=== PATIENT | male | born 1995 | race Caucasian/White ===

== ENCOUNTER 2020-02-12 10:44 | Emergency (ER) | payer OTHER ==
[~2020-02-12] VITALS: Ht 175.3 cm; Wt 115.0 kg
[2020-02-12 10:58] VITALS: BP 133/77
--- NOTE | 2020-02-12 11:30 | PHYS DOC ---
Past History Past Medical History: No Pertinent History Past Surgical History: No Surgical History Alcohol Use: Occasionally Adult General Chief Complaint Chief Complaint: PSYCH EVALUATION HPI HPI 24-year-old male presents with depression. Patient has been feeling like his life is out of control and not making sense for several months. He is struggled with this on and off since his teen years. He presents today because he drank much alcohol when out did some "dumb things". He is feeling remorseful. He denies any suicidal ideation or suicide attempts. No history of attempts. He has no homicidal ideation. He is just concerned that does not understand himself and does not know why he feels this way. He did not know what else to go to try to get some help. The patient is a dependent of the member. He is not himself in the . He denies fever chills. He has no other complaints at this time. Review of Systems Review of Systems Constitutional: Depression. Denies fever or chills [] Eyes: Denies change in visual acuity, redness, or eye pain [] HENT: Denies nasal congestion or sore throat [] Respiratory: Denies cough or shortness of breath [] Cardiovascular: No additional information not addressed in HPI [] GI: Denies abdominal pain, nausea, vomiting, bloody stools or diarrhea [] : Denies dysuria or hematuria [] Musculoskeletal: Denies back pain or joint pain [] Integument: Denies rash or skin lesions [] Neurologic: Denies headache, focal weakness or sensory changes [] Endocrine: Denies polyuria or polydipsia [] All other systems were reviewed and found to be within normal limits, except as documented in this note. Allergies Allergies Allergies Coded Allergies Type Severity Reaction Last Updated Verified No Known Drug Allergies 02/12/20 No Physical Exam Physical Exam Constitutional: Well developed, well nourished, no acute distress, non-toxic appearance. [] HENT: Normocephalic, atraumatic, bilateral external ears normal, oropharynx moist, no oral exudates, nose normal. [] Eyes: PERRLA, EOMI, conjunctiva normal, no discharge. [] Neck: Normal range of motion, no tenderness, supple, no stridor. [] Cardiovascular: Heart rate regular rhythm, no murmur [] Lungs & Thorax: Bilateral breath sounds clear to auscultation [] Abdomen: Bowel sounds normal, soft, no tenderness, no masses, no pulsatile masses. [] Skin: Warm, dry, no erythema, no rash. [] Back: No tenderness, no CVA tenderness. [] Extremities: No tenderness, no cyanosis, no clubbing, ROM intact, no edema. [] Neurologic: Alert and oriented X 3, normal motor function, normal sensory function, no focal deficits noted. [] Psychologic: Affect normal, judgement normal, mood depressed. [] Current Patient Data Vital Signs Vital Signs Date Time Temp Pulse Resp B/P (MAP) Pulse Ox O2 Delivery O2 Flow Rate FiO2 02/12/20 10:58 98.0 100 18 133/77 (95) 97 Room Air EKG EKG [] Radiology/Procedures Radiology/Procedures [] Course & Med Decision Making Course & Med Decision Making Pertinent Labs and Imaging studies reviewed. (See chart for details) [] Dragon Disclaimer Dragon Disclaimer This electronic medical record was generated, in whole or in part, using a voice recognition dictation system. Departure Departure: Impression: Primary Impression: Depression Disposition: 01 HOME, SELF-CARE Condition: STABLE Referrals: MIL COYLE MD (PCP) Patient Instructions: Depression, Adult, [id number] Additional Instructions: For counseling options you can call [employer] [facility] at . You can also call the [employer] crisis line at , then press 1. A local counseling service is the [facility]. You can call them to discuss options at [phone]. Problem Qualifiers Primary Impression: Depression Depression Type: major depressive disorder Major depression recurrence: single episode Active/Remission status: currently active Major depression episode severity: mild Qualified Codes: F32.0 - Major depressive disorder, single episode, mild KIERRA POWERS DO Feb 12, 2020 11:30
== END 2020-02-12 11:44 | disposition home or self-care (01) ==
LOC: ER 10:44
DX: F32.0 Major depressive disorder, single episode, mild (principal)
CPT/HCPCS: 99281; 99283